=== PATIENT | female | born 1975 | race Caucasian/White ===

== ENCOUNTER 2018-08-31 05:35 | Inpatient (IN) | payer BC, MEDICAID ==
[2018-08-31] MEDS ORDERED: Lactated Ringers 1,000 ML IV SCH (06:00)
[2018-08-31] MEDS ORDERED: Oxytocin 10 Units/1 ML SDV ONE ×2 (06:39→07:08)
[2018-08-31] MEDS ORDERED: cefOXitin 1 GM Vial ONE (06:39)
[2018-08-31] MEDS ORDERED: ePHEDrine 50 MG/ML SDV ONE (07:08)
[2018-08-31] MEDS ORDERED: Ondansetron 4 MG/2 ML SDV ONE (07:08)
[2018-08-31] MEDS ORDERED: Phenylephrine 1% 10 MG/ML SDV ONE (07:08)
[2018-08-31] MEDS ORDERED: Lactated Ringers 1,000 ML ONE (07:09)
[2018-08-31] MEDS ORDERED: Naloxone 0.4 MG/ML SDV IVPUSH PRN (07:40)
[2018-08-31] MEDS ORDERED: HYDROmorphone/Normal Saline 15 MG/30 ML PCA IV PRN (07:40)
[2018-08-31] MEDS ORDERED: Naloxone 0.4 MG/ML SDV IV PRN (07:44)
[2018-08-31] MEDS ORDERED: cefOXitin 2 GM Vial ONE (07:47)
[2018-08-31] MEDS ORDERED: fentaNYL 100 MCG/2 ML SDV ONE ×2 (08:11→08:19)
[2018-08-31] MEDS ORDERED: Ondansetron 4 MG/2 ML SDV IVPUSH PRN (10:56)
[2018-08-31] MEDS ORDERED: Dextrose 5%-Lactated Ringers 1,000 ML IV SCH ×2 (11:00)
[2018-08-31] MEDS: cefOXitin 2 GM in Sodium Chloride 0.9% 50 ML IV SCH ×2 (14:30→20:35)
[2018-09-01] MEDS: cefOXitin 2 GM in Sodium Chloride 0.9% 50 ML IV SCH ×2 (01:20→08:39)
--- NOTE | 2018-09-01 04:09 | OR ---
DATE OF PROCEDURE: 08/31/2018 PREOPERATIVE DIAGNOSES: 1. Term with history of previous section. 2. Multiparity. POSTOPERATIVE DIAGNOSES: 1. Term with history of previous section. 2. Multiparity. 3. Nodular fibroid and a narrow stalk located in the posterior aspect of the uterus. OPERATIVE PROCEDURE: 1. Repeat section (94069). 2. Bilateral tubal ligation (52094). 3. Myomectomy of uterine fibroid (10015). ANESTHESIA: Spinal. MAIL TECHNICIAN: Mojgan Lazaro CNM. INDICATIONS FOR PROCEDURE: This is a 43-year-old presenting with term and history of previous sections. At 43, the patient meets medical indications for bilateral tubal ligation. This was cleared by the hospital ethics committee. The plan is to proceed with a repeat section and bilateral tubal ligation. Potential risks of procedure including bleeding, infection, injury to underlying viscera, possible failure of the tubal ligation, possible injury to mother or baby were all reviewed, and the patient wishes to proceed. DETAILS OF PROCEDURE: The patient was taken to the operating room and placed in a supine position with a roll underneath the right hip. A Gabriel catheter had been inserted, and the abdomen was prepped and draped. The previous Pfannenstiel incision was then reused and carried down through the skin and subcutaneous tissue. The rectus sheath was incised. The subrectus flaps were raised superiorly and inferiorly, and the midline peritoneum was divided. The peritoneal reflection of the bladder on the uterus was then divided, and a transverse incision was made in the lower uterine segment. A viable male was delivered. There was slight green tinge to the pleural fluid, but the baby immediately was crying and had very good general appearance. The cord was clamped and cut and routine care given off the field per Mojgan Lazaro. The patient was given IV and intrauterine oxytocin and IV cefoxitin and good uterine contractions were noted. The placenta was delivered, intact. At this point, the uterus was closed with 2 layers of 2-0 Vicryl stitch as was the peritoneal reflection of the bladder on the uterus. At this point, bilateral tubal ligations were accomplished on each side. These were accomplished with removal of 3 cm of the tube, and the remaining ends being coagulated, and then suture ligated with a 4-0 Prolene stitch. Inspection of the posterior aspect of the uterus showed a small elongated fibroid. This was attached by a very small amount of tissue and appeared to be quite detorsing and was therefore excised. This measured only about a centimeter in maximal length. At this point, no further problems noted. The midline peritoneum was approximated with #2 Vicryl stitch as was the anterior rectus sheath. Subcutaneous tissue was approximated with some 2-0 Vicryl stitch and the skin with 4-0 Vicryl subcuticular stitch. Dressing was applied. The patient was taken to the recovery room in satisfactory condition. There were no complications. Zander Hurtado MD /[id number]
[2018-09-01] MEDS ORDERED: Witch Hazel Medicated Pads 100/Jar TOP PRN (06:33)
[2018-09-01] MEDS ORDERED: Lanolin 100% Cream 40 GM Tube TOP PRN (06:33)
[2018-09-01] MEDS ORDERED: Ondansetron 4 MG Tab.DIS PO PRN (07:24)
[2018-09-01] MEDS ORDERED: Albuterol 8 GM Inhaler INH PRN (07:25)
[2018-09-01] MEDS ORDERED: hydrOXYzine HCl 25 MG Tab PO PRN (07:25)
[2018-09-01] MEDS: Ibuprofen 600 MG Tab PO SCH ×3 (08:40→20:10)
[2018-09-01] MEDS: Cetirizine 10 MG Tab PO SCH (08:40)
[2018-09-01] MEDS: Pantoprazole 40 MG Tab.CR PO SCH (08:40)
[2018-09-01] MEDS: Vitamin B6-pyridOXINE 50 MG Tab PO SCH (08:40)
[2018-09-01] MEDS: Docusate Sodium 100 MG Cap PO SCH ×2 (08:40→20:10)
[2018-09-01] MEDS: Folic Acid 1 MG Tab PO SCH (08:40)
[2018-09-01] MEDS: Prenatal Multivitamin with Calcium/Folic Acid/Iron Tab PO SCH (08:40)
--- NOTE | 2018-09-01 08:45 | PN ---
DATE OF SERVICE: 09/01/2018 SUBJECTIVE: Dinah is postop day #1 following a section and bilateral tubal ligation. She states her pain is controlled. She has a Gabriel catheter in and her urinary output 600 and oral intake 1160. Vital signs have been stable. REVIEW OF SYSTEMS: Remainder of review of systems negative for any pertinent positives and negatives. OBJECTIVE: GENERAL: Dinah Pickard is a 43-year-old female, alert, orientated. VITAL SIGNS: TPR 97.4, 92, 16, blood pressure 132/53. HEENT: Negative. NECK: Supple. HEART: Regular rate and rhythm. LUNGS: Clear. ABDOMEN: Aquacel dressings is on. Abdominal binder is not on. EXTREMITIES: Without peripheral edema. SCDs are on. ASSESSMENT: Repeat section, excision of uterine nodule, and bilateral tubal ligation for term with history of previous , fibrous nodule posterior uterus, multiparity. Date of surgery: 08/31/2018. Surgeon: Zander Hurtado MD. PLAN: 1. Discontinue Gabriel catheter. 2. 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 3. Continuous pulse ox. 4. Colace 100 mg b.i.d. 5. Regular diet. 6. Zofran ODT 4 mg q.4 hours p.r.n. nausea. 7. Percocet 5/325 mg 1 to 2 every 4 hours p.r.n. pain. 8. Ibuprofen 600 mg q.6 hours scheduled for pain. 9. Saline lock IV if oral intake adequate. 10.May shower, leaving Aquacel dressing on. 11.Home medications were restarted. Albuterol inhaler q.6 hours p.r.n. wheezing. Zyrtec 10 mg p.o. daily. Hydroxyzine pamoate 25 mg p.o. t.i.d. B6 25 mg p.o. daily. vitamin 1 tablet p.o. daily. 12.Good pulmonary toilet. 13.We will evaluate p.r.n. or in a.m. Sarahy Adam PA-C /[id number]
[2018-09-01] MEDS: Acetaminophen/oxyCODONE 325-5 MG Tab PO PRN ×3 (10:50→21:59)
[2018-09-02] MEDS: Ibuprofen 600 MG Tab PO SCH ×2 (01:15→07:18)
[2018-09-02] MEDS: Acetaminophen/oxyCODONE 325-5 MG Tab PO PRN (07:18)
[2018-09-02] MEDS ORDERED: Magnesium Hydroxide 400 MG/5 ML Susp 30 ML Cup PO PRN (07:19)
[2018-09-02] MEDS: Docusate Sodium 100 MG Cap PO SCH (09:15)
[2018-09-02] MEDS: Pantoprazole 40 MG Tab.CR PO SCH (09:15)
[2018-09-02] MEDS: Prenatal Multivitamin with Calcium/Folic Acid/Iron Tab PO SCH (09:42)
[2018-09-02] MEDS: Vitamin B6-pyridOXINE 50 MG Tab PO SCH (09:43)
[2018-09-02] MEDS: Folic Acid 1 MG Tab PO SCH (09:43)
[2018-09-02] MEDS: Cetirizine 10 MG Tab PO SCH (09:43)
--- NOTE | 2018-09-02 13:53 | DISCH ---
ADMISSION DIAGNOSES: 1. Term with history of previous . 2. Multiparity. DISCHARGE DIAGNOSES: 1. Repeat . 2. Bilateral tubal ligation. 3. Myomectomy of uterine fibroid for term with history of previous , multiparity, and nodule fibroid with a narrow stalk located in the posterior aspect of the uterus. Date of surgery, 08/31/2018. HISTORY: Dinah is a 43-year-old female presenting with term and history of previous C-sections. At 43, the patient needs medical indications for bilateral tubal ligation. This was cleared by the Hospital Ethics Committee. After preoperative evaluation, discussion of possible risks and possible complications, she wished to proceed with surgical procedure. HOSPITAL COURSE: Dinah had her surgery on 08/31/2018. She had no operative complications. On postoperative day 1, Gabriel catheter was discontinued. 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 She was started on stool softener, regular diet, oral pain medication, ibuprofen as well as Tylenol. On postoperative day 2, she was ready to be discharged to home. Her activity was good. The pain was well managed. Vital signs stable and baby was doing well. PHYSICAL EXAMINATION: GENERAL: Dinah Pickard is a 43-year-old female. VITAL SIGNS: Height is 5 feet 2.99 inches. Weight is 280 pounds. TPR 96.5, 90, 18, blood pressure 107/55. HEENT: Negative. NECK: Supple. HEART: Regular rate and rhythm. LUNGS: Clear. ABDOMEN: Aquacel dressing is on incision. Abdominal binder is on. EXTREMITIES: Without peripheral edema. DISPOSITION: Discharged to home. CONDITION: Stable and improving. FOLLOWUP APPOINTMENT: Sarahy Adam PA-C, at [facility] 09/08/2018 at 10 a.m. Followup with Mojgan Lazaro on 10/12/2018 at 11 a.m. NEW PRESCRIPTIONS: 1. Percocet 5/325 mg 1 tab every 6 hours p.r.n. pain, #42. 2. Colace 100 mg oral b.i.d., #60. 3. Ibuprofen 600 mg q.6 hours p.r.n. pain, #100. 4. Lanolin 40 g topical, the remaining tube will be sent home with patient. 5. Milk of magnesia 30 mL oral, 2 doses were sent home with the patient to take 1 daily as needed for constipation. 6. She is to resume her home medication of ProAir 2 puffs inhalation every 6 hours p.r.n. shortness of breath. 7. Zyrtec 10 mg oral daily. 8. Folic acid 1 mg oral daily. 9. Omeprazole 20 mg oral daily. 10. vitamins 1 tablet oral daily. 11.Vitamin B6 25 mg oral daily. 12.Hydroxyzine 25 mg oral 3 times a day p.r.n. itching. DIET: Usual diet as tolerated, drink 8 to 10 glasses of water a day. ACTIVITY: No lifting greater than baby in car seat for 6 weeks[address] Driving, do not drive for 1 week and while on narcotic pain medication. May shower. DISCHARGE INSTRUCTIONS: Notify provider if any fever, increased pain, nausea, or vomiting. Keep site clean and dry. Wear abdominal binder for 6 weeks. Use incentive spirometer 10 times every hour while awake for 1 week.
== END 2018-09-02 14:21 | disposition home or self-care (01) | DRG 540 ==
LOC: JP.SDS 05:35 → JP.MS 07:57
PROVIDERS: ADMIT Advanced Practice Midwife; ATTEND Surgery
PROC: 10D00Z1 Extraction of Products of Conception, Low, Open Approach (ICD-10-PCS; principal; 2018-08-31)
PROC: 0UB93ZZ Excision of Uterus, Percutaneous Approach (ICD-10-PCS; 2018-08-31)
PROC: 0UB73ZZ Excision of Bilateral Fallopian Tubes, Percutaneous Approach (ICD-10-PCS; 2018-08-31)
DX: O34.211 Maternal care for low transverse scar from previous cesarean delivery (principal); N85.8 Other specified noninflammatory disorders of uterus; O77.0 Labor and delivery complicated by meconium in amniotic fluid; Z3A.37 37 weeks gestation of pregnancy; Z37.0 Single live birth; Z64.1 Problems related to multiparity; D25.9 Leiomyoma of uterus, unspecified
CPT/HCPCS: 36415; 59409; 80305-QW; 85027; 86850; 86900; 86901; 94762; A9270-GY; J0694; J1170; J2370; J2405; J2590; J3010; J7042; J7050; J7120

== ENCOUNTER 2019-09-27 06:29 | Day surgery (SDC) | payer BC, MEDICAID ==
[2019-09-27] MEDS ORDERED: Lidocaine 1% with EPINEPHrine 1:100,000 50 ML MDV ONE (06:31)
[2019-09-27] MEDS ORDERED: Acetaminophen 500 MG Tab PO ONE (06:45)
[2019-09-27] MEDS ORDERED: Dextrose 5%-Lactated Ringers 1,000 ML IV SCH (07:00)
[2019-09-27] MEDS ORDERED: Propofol 200 MG/20 ML SDV ONE (07:10)
[2019-09-27] MEDS ORDERED: Midazolam 1 MG/ML 2 ML SDV ONE ×2 (07:11→08:25)
[2019-09-27] MEDS ORDERED: fentaNYL 100 MCG/2 ML SDV ONE (07:11)
[2019-09-27] MEDS ORDERED: Lidocaine 0.5% 50 ML SDV ONE (07:13)
[2019-09-27] MEDS ORDERED: ceFAZolin 2 GM in Premix Bag 1 BAG IV ONE (08:45)
[2019-09-27] MEDS ORDERED: Ketorolac 60 MG/2 ML SDV IM ONE (09:00)
[2019-09-27] MEDS ORDERED: Acetaminophen/HYDROcodone 325-5 MG Tab PO PRN (10:11)
--- NOTE | 2019-10-07 11:48 | OR ---
DATE OF PROCEDURE: 09/27/2019 SURGEON: Zander Hurtado MD PREOPERATIVE DIAGNOSIS: Right carpal tunnel syndrome. POSTOPERATIVE DIAGNOSIS: Right carpal tunnel syndrome. OPERATIVE PROCEDURE: Right carpal tunnel release (16950). ANESTHESIA: IV sedation plus intravenous block. INDICATIONS FOR PROCEDURE: This is a 44-year-old, presenting with increasingly symptomatic right carpal tunnel syndrome. The patient previously was also noted to have a ganglion cyst on the dorsum of the wrist on the left side, but that spontaneously ruptured after being bumped somewhat forcefully, and at this point it is no longer clinically present. The plan is to proceed with a right carpal tunnel release. Potential risks including bleeding, infection, injury to the median nerve and/or its branches, possible incomplete relief of symptoms were all reviewed, and the patient wishes to proceed. DETAILS OF PROCEDURE: The patient was taken to the operating room and placed in a supine position. IV block was placed affecting the right forearm and hand while the patient received some ongoing IV sedation. The right forearm and hand were then prepped and draped. A standard right carpal tunnel incision was made and carried down through the skin and subcutaneous tissue. The transverse carpal ligament was then incised for its length including extending onto the palm of the hand. This was quite thickened and did retract under tension. Underlying median nerve otherwise appeared to be intact. At this point, subcutaneous tissue was approximated with some 4-0 Vicryl stitch and the skin with a 5-0 Prolene stitch. Dressing was applied. The patient was taken to the recovery room in satisfactory condition. Zander Hurtado MD /[id number]
== END 2019-09-27 10:27 | disposition home or self-care (01) ==
LOC: JP.SDS 06:29
PROVIDERS: ATTEND Surgery
DX: G56.01 Carpal tunnel syndrome, right upper limb (principal); E66.9 Obesity, unspecified; K21.9 Gastro-esophageal reflux disease without esophagitis; Z87.891 Personal history of nicotine dependence; Z68.41 Body mass index [BMI] 40.0-44.9, adult
CPT/HCPCS: 36415; 64721; 80048; 81025; 85027; A9270; J0690; J1885; J2250; J2704; J3010; J7121; J2001